=== PATIENT | male | born 1945 ===

== ENCOUNTER 2020-03-09 02:17 | Inpatient (IN) | payer MEDICARE ==
--- NOTE | 2020-03-09 11:08 | Consultation ---
History of Present Illness - Reason for Consult Consult date: 03/09/20 HTN, Requesting physician: CAMI ARIAS - History of Present Illness 74 YO Male with HTN, DM, CAD S/P Stent Placement, Anxiety, Depression admitted to [facility] for Psychiatric stabilization. Pt seen and evaluated in dayroom. Pt denies any complaint. Pt is cooperative with exam and interview. Pt denies fever, chills, chest pain, palpitations, productive cough, recent ill contacts. No reported nursing events. Past History Past Medical History: CAD, diabetes, hypertension, other (See HPI) Past Surgical History: Other (Stent placement) Social history: single. denies: smoking, alcohol abuse, prescription drug abuse Family history: hypertension Medications and Allergies Allergies Allergy/AdvReac Type Severity Reaction Status Date / Time clopidogrel [From Plavix] AdvReac Unknown Verified 03/09/20 10:18 Home Medications Medication Instructions Recorded Confirmed Last Taken Type Aricept 5 mg PO QHS 03/09/20 03/13/20 Unknown History Aspirin 81 mg PO DAILY 03/09/20 03/13/20 Unknown History Cardizem 180 mg PO DAILY 03/09/20 03/13/20 Unknown History Cozaar 50 mg PO BID 03/09/20 03/13/20 Unknown History Crestor 20 mg PO DAILY 03/09/20 03/13/20 Unknown History Flomax 0.4 mg PO DAILY 03/09/20 03/13/20 Unknown History HCTZ 25 mg PO BID 03/09/20 03/13/20 Unknown History Insulin Detemir [Levemir VIAL] 15 units SUB-Q QHS 03/09/20 03/13/20 Unknown History Lexapro 10 mg PO DAILY 03/09/20 03/13/20 Unknown History Mirapex 1 mg PO DAILY 03/09/20 03/13/20 Unknown History NovoLOG 100 UNITS/ML VIAL 3 units SUB-Q TID 03/09/20 03/13/20 Unknown History Remeron 15mg TAB 15 mg PO QHS 03/09/20 03/13/20 Unknown History Wellbutrin 150 mg PO Q12H 03/09/20 03/13/20 Unknown History Review of Systems Constitutional: no weight loss, no weight gain, no fever, no chills, no sweats Ears, nose, mouth and throat: no ear pain, no ear discharge, no decreased hearing, no nose pain, no nasal congestion, no nasal discharge Cardiovascular: no chest pain, no orthopnea, no palpitations, no edema, no syncope, no lightheadedness Respiratory: no cough, no cough with sputum, no excessive sputum, no hemoptysis, no shortness of breath Gastrointestinal: no abdominal pain, no nausea, no vomiting Genitourinary Male: no hematuria, no flank pain, no discharge, no urinary frequency, no urinary hesitancy Rectal: no pain, no incontinence, no bleeding Musculoskeletal: no neck stiffness, no neck pain, no arm numbness/tingling, no leg numbness/tingling, no redness of joints Integumentary: no rash, no pruritis, no sores, no wounds Neurological: no weakness, no parathesias, no tingling Psychiatric: no change in sleep habits, no sleep disturbances, no insomnia, no hypersomnia Endocrine: no cold intolerance, no heat intolerance, no polyphagia Hematologic/Lymphatic: no easy bruising, no easy bleeding, no lymphadenopathy Allergic/Immunologic: no urticaria, no persistent infections Exam - Constitutional General appearance: Present: no acute distress, well-nourished - EENT Eyes: Present: PERRL ENT: hearing intact, clear oral mucosa - Neck Neck: Present: supple, normal ROM - Respiratory Respiratory effort: normal Respiratory: bilateral: CTA - Cardiovascular Heart Sounds: Present: S1 & S2. Absent: rub, click - Extremities Extremities: pulses symmetrical, No edema Peripheral Pulses: within normal limits - Abdominal General gastrointestinal: Present: soft, non-tender, non-distended, normal bowel sounds Male genitourinary: Present: normal - Integumentary Integumentary: Present: clear, warm, dry - Musculoskeletal Musculoskeletal: gait normal, strength equal bilaterally - Psychiatric Psychiatric: appropriate mood/affect, intact judgment & insight - Neurologic Neurologic: CNII-XII intact, moves all extremities Assessment and Plan - Patient Problems (1) Diabetes Status: Acute Plan to address problem: Consistent carbohydrate diet, antihypoglycemic therapy (2) Hypertension Status: Acute Qualifiers: Hypertension type: essential hypertension Qualified Code(s): I10 - Essential (primary) hypertension Plan to address problem: Monitor blood pressure every shift, continue medical management.
[2020-03-09] MEDS ORDERED: CARDIZEM 180 MG PO SCH (16:00)
[2020-03-09] MEDS ORDERED: NON-FORMULARY EACH (Flomax 0.4 MG) PO SCH (16:00)
[2020-03-09] MEDS ORDERED: NON-FORMULARY EACH (Aspirin 81 MG) PO SCH (16:00)
[2020-03-09] MEDS ORDERED: COZAAR 50 MG PO SCH (16:00)
[2020-03-09] MEDS ORDERED: MIRAPEX 0.5 MG PO SCH (16:15)
[2020-03-09 18:14] LABS: Chol/HDL Ratio 2.81 %
[2020-03-09] MEDS: TAMSULOSIN 0.4 MG CAP PO SCH (19:02)
[2020-03-09] MEDS: PRAMIPEXOLE 0.5 MG TAB PO SCH (19:02)
[2020-03-09] MEDS: dilTIAZem CD 180 MG CAP PO SCH (19:03)
[2020-03-09] MEDS: LOSARTAN 50 MG TAB PO SCH ×2 (19:05→21:33)
[2020-03-09] MEDS: ASPIRIN EC 81 MG TAB PO SCH (19:06)
[2020-03-09] MEDS ORDERED: NOVOLOG SUB-Q SCH (20:00)
[2020-03-09] MEDS: INSULIN LISPRO 100 UNIT/ML SUB-Q SCH (21:32)
[2020-03-09] MEDS: hydroCHLOROthiazide 25 MG TAB PO SCH (21:33)
[2020-03-09] MEDS ORDERED: DONEPEZIL 10 MG TAB PO SCH (22:00)
[2020-03-09] MEDS ORDERED: INSULIN GLARGINE 100 UNITS/ML SUB-Q SCH (22:00)
[2020-03-09] MEDS ORDERED: ARICEPT 10 MG PO SCH (22:00)
[2020-03-09] MEDS ORDERED: NON-FORMULARY EACH (Hctz 25 MG) PO SCH (22:00)
[2020-03-09] MEDS ORDERED: INSULIN DETEMIR 15 UNIT SUB-Q SCH (22:00)
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
[2020-03-10 09:28] VITALS: BP 100/57
[2020-03-10] MEDS: dilTIAZem CD 180 MG CAP PO SCH (09:29)
[2020-03-10] MEDS: TAMSULOSIN 0.4 MG CAP PO SCH (09:30)
[2020-03-10] MEDS: hydroCHLOROthiazide 25 MG TAB PO SCH (09:30)
[2020-03-10] MEDS: PRAMIPEXOLE 0.5 MG TAB PO SCH (09:30)
[2020-03-10] MEDS: INSULIN LISPRO 100 UNIT/ML SUB-Q SCH ×2 (09:30→13:19)
[2020-03-10] MEDS: ASPIRIN EC 81 MG TAB PO SCH (09:30)
[2020-03-10] MEDS: LOSARTAN 50 MG TAB PO SCH (09:31)
[2020-03-10] MEDS ORDERED: PANTOPRAZOLE 40 MG TAB PO SCH (10:00)
[2020-03-10] MEDS ORDERED: risperiDONE 0.25 MG TAB PO SCH (11:00)
--- NOTE | 2020-03-10 13:18 | Discharge Summary ---
Providers - Providers Date of Admission: 03/09/20 09:04 Date of discharge: 03/10/20 Attending physician: CAMI ARIAS MD 03/09/20 07:37 Consult to Physician [CONS] Routine Comment: Consulting Provider: COLLINS ORLANDO Physician Instructions: Reason For Exam: Medical Management 03/09/20 16:04 Physical Therapy Evaluation and Treat [CONS] Stat Comment: Reason For Exam: Ambulatroy assessment Primary care physician: SORTER LUMBER STRAIGHTENER Hospitalization Reason for admission: Dementia with Behv disturbance Condition: Good Hospital course: Pt complained of chest pain on my initial psych evaluation, due to history of CAD, had to be discharged from Psych to Medical Unit. Disposition: DC/[place]-70 ANOTHER TYPE HLTHCARE Allergies/Adverse Reactions: Allergies clopidogrel [From Plavix] Adverse Reaction (Verified 03/09/20 10:18) Unknown Vital Signs: Last Vital Signs Temp 98.0 F 03/10/20 09:17 Pulse 59 L 03/10/20 09:31 Resp 18 03/10/20 09:17 BP 100/57 03/10/20 09:31 Pulse Ox 93 03/10/20 09:17 Last Lab: Laboratory Last Values POC Glucose 172 (70-105) H 03/10/20 07:55 Hemoglobin A1c 7.4 % (4-6) H 03/09/20 17:22 Triglycerides 116 mg/dL (2-149) 03/09/20 17:22 Cholesterol 107 mg/dL (50-199) 03/09/20 17:22 LDL Cholesterol Direct 59 mg/dL (50-130) 03/09/20 17:22 HDL Cholesterol 38 mg/dL (40-59) L 03/09/20 17:22 Cholesterol/HDL Ratio 2.81 % 03/09/20 17:22 TSH 2.950 mlU/mL (0.270-4.200) 03/09/20 17:22 - Discharge Diagnoses (1) Dementia with behavioral disturbance Status: Acute Qualifiers: Dementia type: unspecified type Qualified Code(s): F03.91 - Unspecified dementia with behavioral disturbance Core Measure Documentation - Palliative Care Palliative Care/ Comfort Measures: Not Applicable - Core Measures Any of the following diagnoses?: none Exam - Constitutional Vitals: Temp Pulse Resp BP Pulse Ox 98.0 F 59 L 18 100/57 93 03/10/20 09:17 03/10/20 09:31 03/10/20 09:17 03/10/20 09:31 03/10/20 09:17 - EENT Eyes: Present: PERRL, EOM intact ENT: hearing intact, clear oral mucosa - Neck Neck: Present: supple, normal ROM - Respiratory Respiratory effort: normal - Abdominal Male genitourinary: Present: normal Plan Care Plan Goals: Medical stability with Psych follow up Plan of Treatment: Patient discharged to Medical due to complaints of chest pain Health Concerns: Medical stability and Mental health f/u for Behv disturbance Follow up with: PRIMARY CARE, [Primary Care Provider] - 7 Days
== END 2020-03-10 13:15 | disposition short-term general hospital (02) | DRG 884 ==
LOC: 5A 09:04
PROVIDERS: ADMIT Psychiatry & Neurology Psychiatry; ATTEND Psychiatry & Neurology Psychiatry
DX: F03.91 Unspecified dementia, unspecified severity, with behavioral disturbance (principal); I25.10 Atherosclerotic heart disease of native coronary artery without angina pectoris; Z95.5 Presence of coronary angioplasty implant and graft; F41.9 Anxiety disorder, unspecified; F32.9 Major depressive disorder, single episode, unspecified; Z79.899 Other long term (current) drug therapy; Z79.82 Long term (current) use of aspirin; Z79.4 Long term (current) use of insulin
CPT/HCPCS: 36415; 80061; 82962; 83036; 84443; 93005; G0378; J1815